=== PATIENT | female | born 1975 | race African-American/Black ===

== ENCOUNTER 2023-02-10 08:03 | Emergency (ER) | payer BC, MEDICAID ==
[~2023-02-10] VITALS: Ht 180.3 cm; Wt 118.0 kg
[2023-02-10] MEDS ORDERED: ACETAMINOPHEN 325MG TABLET PO STA (08:18)
[2023-02-10 08:55] LABS: BASOPHILS % 0.5 % (0.0-2.0); EOSINOPHILS % 2.4 % (0.0-5.0); HEMATOCRIT. 38.2 % (36.0-48.0); HEMOGLOBIN. 12.7 g/dL (12.0-16.0); LYMPHOCYTES % 15.3 % (20.0-50.0); MEAN CORPUSCULAR HEMOGLOBIN 30.9 pg (28.0-32.0); MEAN CORPUSCULAR VOLUME 92.8 fL (81.0-99.0); MEAN PLATELET VOLUME 11.2 fl (7.4-10.4); MONOCYTES % 7.5 % (2.0-8.0); NEUTROPHILS % 74.3 % (40.0-76.0); PLATELET 156 x1000/uL (130-400); RED BLOOD CELL COUNT 4.12 mill/uL (4.2-5.4)
[2023-02-10 09:03] LABS: CHLORIDE 107 mEq/L (98-107)
[2023-02-10 09:07] LABS: INR 0.9; PROTHROMBIN TIME 10.2 sec (9.6-11.0)
[2023-02-10 09:09] LABS: HCG SCREEN NEGATIVE
[2023-02-10] MEDS ORDERED: ACETAMINOPHEN 325MG TABLET PO NR (10:00)
[2023-02-10] MEDS ORDERED: T3 PO (10:53)
[2023-02-10] MEDS ORDERED: METR-167 PO (10:53)
[2023-02-10] MEDS ORDERED: CIPR500T5 PO (10:53)
[2023-02-10 11:42] VITALS: BP 127/75
== END 2023-02-10 11:44 | disposition home or self-care (01) ==
LOC: ER 08:03
DX: K52.9 Noninfective gastroenteritis and colitis, unspecified (principal)
CPT/HCPCS: 36415; 74176; 76830; 76856; 80053; 84703; 85025; 99285